=== PATIENT | female | born 2000 | race African-American/Black ===

== ENCOUNTER 2023-02-25 18:30 | Emergency (ER) | payer BC, OTHER ==
[2023-02-25] MEDS ORDERED: Acetaminophen 500 MG TAB ONE ×2 (20:18)
== END 2023-02-25 22:25 | disposition home or self-care (01) ==
LOC: ERS 18:30
DX: M54.50 Low back pain, unspecified (principal); V89.2XXA Person injured in unspecified motor-vehicle accident, traffic, initial encounter
CPT/HCPCS: 72072; 72100

== ENCOUNTER 2023-02-28 09:49 | Emergency (ER) | payer BC | END 2023-02-28 10:55 | disposition home or self-care (01) | LOC: ERS 09:49 | DX: M54.9 Dorsalgia, unspecified (principal); M79.604 Pain in right leg | CPT/HCPCS: 99283 ==